=== PATIENT | female | born 1970 | race Two or more races ===

== ENCOUNTER 2022-03-03 13:15 | Inpatient (IN) | payer MEDICAID ==
[~2022-03-03] VITALS: Ht 149.9 cm; Wt 52.2 kg
[2022-03-03] MEDS ORDERED: SODIUM CHLORIDE 0.9% 1,000 ML IV ONE (13:30)
[2022-03-03 14:07] LABS: BASOPHILS % 0.7 % (0.0-2.0); EOSINOPHILS % 1.3 % (0.0-5.0); HEMATOCRIT. 27.4 % (36.0-48.0); HEMOGLOBIN. 8.8 g/dL (12.0-16.0); LYMPHOCYTES % 13.8 % (20.0-50.0); MEAN CORPUSCULAR HEMOGLOBIN 22.2 pg (28.0-32.0); MEAN CORPUSCULAR VOLUME 69.3 fL (81.0-99.0); MEAN PLATELET VOLUME 7.9 fl (7.4-10.4); MONOCYTES % 5.6 % (2.0-8.0); NEUTROPHILS % 78.6 % (40.0-76.0); PLATELET 275 x1000/uL (130-400); RED BLOOD CELL COUNT 3.95 mill/uL (4.2-5.4); RED CELL DISTRIBUTION WIDTH 19.5 % (11.6-14.6)
[2022-03-03 14:11] LABS: CHLORIDE 108 mEq/L (98-107)
[2022-03-03 14:21] LABS: B-HCG QUANTITATIVE < 1 mIU/mL (<3)
[2022-03-03 14:32] LABS: HCG SCREEN NEGATIVE
[2022-03-03 14:52] LABS: PLATELET ESTIMATE NORMAL
[2022-03-03 21:25] VITALS: BP 108/53
[2022-03-03 22:48] VITALS: BP 108/53
[2022-03-04 00:17] VITALS: BP 101/61
[2022-03-04] MEDS ORDERED: MORPHINE SULFATE 2 MG/ML CPJ (NOT FOR IM USE) IV PRN (02:30)
[2022-03-04] MEDS ORDERED: CLONIDINE 0.1MG TABLET PO PRN (02:30)
[2022-03-04] MEDS ORDERED: NALOXONE HCL 0.4MG/ML VIAL IV PRN (02:45)
[2022-03-04 04:00] VITALS: BP 108/71
[2022-03-04 07:17] LABS: BASOPHILS % 0.7 % (0.0-2.0); EOSINOPHILS % 2.5 % (0.0-5.0); HEMATOCRIT. 27.4 % (36.0-48.0); LYMPHOCYTES % 24.1 % (20.0-50.0); MEAN CORPUSCULAR HEMOGLOBIN 24.1 pg (28.0-32.0); MEAN CORPUSCULAR VOLUME 73.9 fL (81.0-99.0); MEAN PLATELET VOLUME 8.3 fl (7.4-10.4); MONOCYTES % 9.3 % (2.0-8.0); NEUTROPHILS % 63.4 % (40.0-76.0); PLATELET 233 x1000/uL (130-400); RED BLOOD CELL COUNT 3.71 mill/uL (4.2-5.4); RED CELL DISTRIBUTION WIDTH 23.2 % (11.6-14.6)
[2022-03-04 07:41] LABS: CHLORIDE 109 mEq/L (98-107)
[2022-03-04 08:00] VITALS: BP 95/55
[2022-03-04 10:02] LABS: T4 FREE 0.99 ng/dL (0.76-1.46)
[2022-03-04 12:00] VITALS: BP 103/58
[2022-03-04] MEDS: ACETAMINOPHEN 325MG TABLET PO PRN (13:32)
[2022-03-04 16:00] VITALS: BP 94/44
[2022-03-04 16:17] LABS: CREATINE KINASE 41 IU/L (26-192); CREATINE KINASE MB FRACTION < 1.0 ng/mL (0.5-3.6)
[2022-03-04 20:00] VITALS: BP 113/71
[2022-03-04] MEDS ORDERED: ZOLPIDEM TARTRATE 5MG TABLET PO PRN (22:15)
[2022-03-04 23:25] LABS: CREATINE KINASE 38 IU/L (26-192); CREATINE KINASE MB FRACTION < 1.0 ng/mL (0.5-3.6)
[2022-03-05] VITALS: BP 95/50
[2022-03-05 04:00] VITALS: BP 98/54
[2022-03-05 08:19] VITALS: BP 110/65
[2022-03-05] MEDS ORDERED: SODIUM CHLORIDE 0.9% 1,000 ML IV ONE (08:30)
[2022-03-05 08:35] LABS: CREATINE KINASE 33 IU/L (26-192); CREATINE KINASE MB FRACTION 1.1 ng/mL (0.5-3.6)
[2022-03-05] MEDS: ACETAMINOPHEN 325MG TABLET PO PRN (09:20)
[2022-03-05 11:36] LABS: HEMATOCRIT 27.4 % (36.0-48.0); MEAN CORPUSCULAR HEMOGLOBIN 23.9 pg (28.0-32.0); MEAN CORPUSCULAR VOLUME 72.8 fL (81.0-99.0); PLATELET 256 x1000/uL (130-400); RED BLOOD CELL COUNT 3.77 mill/uL (4.2-5.4); RED CELL DISTRIBUTION WIDTH 23.2 % (11.6-14.6)
[2022-03-05 12:25] VITALS: BP 97/58
[2022-03-05 12:52] VITALS: BP 97/58
== END 2022-03-05 13:55 | disposition home or self-care (01) | DRG 532 ==
LOC: ER 13:31 → 7WST 18:51 → ENRESERV 19:41
PROVIDERS: ADMIT Internal Medicine; ATTEND Internal Medicine
PROC: 30233N1 Transfusion of Nonautologous Red Blood Cells into Peripheral Vein, Percutaneous Approach (ICD-10-PCS; principal; 2022-03-03)
DX: D25.9 Leiomyoma of uterus, unspecified (principal); E44.1 Mild protein-calorie malnutrition; I95.9 Hypotension, unspecified; G90.8 Other disorders of autonomic nervous system; D62 Acute posthemorrhagic anemia; G43.909 Migraine, unspecified, not intractable, without status migrainosus; Z82.49 Family history of ischemic heart disease and other diseases of the circulatory system
CPT/HCPCS: 36415; 76830; 76856; 80048; 80053; 80061; 82550; 82553; 83036; 83880; 84439; 84443; 84484; 84702; 84703; 85025; 85027; 85379; 86850; 86900; 86920; 93005; 93306; 99291; J7030; P9016